=== PATIENT | male | born 1980 | race Caucasian/White ===

== ENCOUNTER → 2017-02-23 | Day surgery (SDC) | payer BC, SELFPAY ==
[~2017-02-23] VITALS: Ht 188 cm; Wt 163.8 kg
[~2017-02-23] MED LIST: COZAAR50 MG PO; DILTIAZEM ER240 M2 PO; IRON325 M1 PO; LEVOTHROID(SYN75 MCG PO; MOBIC7.5 MG PO; OXYCODONE HCL10 MG PO; OXYCONTIN30 MG PO; OXYGEN M-15 INH; XARELTO20 MG PO
== END ==
LOC: GPOC 02-17 09:00 → GEND 06:55
PROC: 0DB88ZX Excision of Small Intestine, Via Natural or Artificial Opening Endoscopic, Diagnostic (ICD-10-PCS; principal; 2017-02-23)
PROC: 0DB68ZX Excision of Stomach, Via Natural or Artificial Opening Endoscopic, Diagnostic (ICD-10-PCS; 2017-02-23)
PROC: 0DBP8ZX Excision of Rectum, Via Natural or Artificial Opening Endoscopic, Diagnostic (ICD-10-PCS; 2017-02-23)
PROC: 0DBK8ZX Excision of Ascending Colon, Via Natural or Artificial Opening Endoscopic, Diagnostic (ICD-10-PCS; 2017-02-23)
PROC: 0DBN8ZX Excision of Sigmoid Colon, Via Natural or Artificial Opening Endoscopic, Diagnostic (ICD-10-PCS; 2017-02-23)
DX: D12.2 Benign neoplasm of ascending colon (principal); K31.7 Polyp of stomach and duodenum; K62.1 Rectal polyp; E66.01 Morbid (severe) obesity due to excess calories; G47.33 Obstructive sleep apnea (adult) (pediatric); I10 Essential (primary) hypertension; I48.91 Unspecified atrial fibrillation; D64.9 Anemia, unspecified; D69.6 Thrombocytopenia, unspecified; E07.9 Disorder of thyroid, unspecified; Z79.891 Long term (current) use of opiate analgesic; Z88.5 Allergy status to narcotic agent; Z88.6 Allergy status to analgesic agent
CPT/HCPCS: J2001; J7030

== ENCOUNTER → 2017-03-02 | Outpatient (CLI) | payer BC, SELFPAY | END | disposition disaster alternative care site (69) | LOC: GRAD 12:33 | DX: R16.1 Splenomegaly, not elsewhere classified (principal); D50.9 Iron deficiency anemia, unspecified; D69.6 Thrombocytopenia, unspecified ==